=== PATIENT | female | born 1990 ===

== ENCOUNTER 2022-09-05 09:55 | Emergency (ER) | payer MEDICAID, SELFPAY ==
[2022-09-05 10:01] VITALS: BP 121/58; PULSE 80; RESP 16; TEMP 36.9; O2SAT 96; BMI 23.6
[2022-09-05 10:32] LABS: COVID-19 Test Negative (Negative); IDNOW Serial# BCCEAD1C
[2022-09-05 10:40] LABS: IDNOW Serial# 9DB6401D; Influenza A Negative (Negative); Influenza B2 Negative (Negative)
--- NOTE | 2022-09-05 11:01 | ED.URI ---
HPI - URI/Sore Throat General Chief Complaint: Upper Respiratory Symptoms Stated Complaint: fever, headache, congestion Time Seen by Provider: 09/05/22 10:00 Source: patient Mode of arrival: ambulatory Limitations: no limitations History of Present Illness HPI Narrative: Chaparro is a 32 yo female with no PMHx who presents today in the emergency room for a CC of sore throat, fever, chills, congestion, fatigue , and a productive cough for the last 4 days. She says her symptoms started Thursday where she measured a fever of 101 and noticed a sore throat and headache. She says she also had a productive cough with some green phlegm and says that she came into the ER today because she noticed small specks of blood in her cough this morning. She does not like taking medication and so has not tried anything to help with her symptoms. She denies chest pain, shortness of breath, nausea, vomiting, diarrhea, or constipation. She denies receiving any COVID or flu vaccines. She does admit to being in close contact with 3 family members who have tested positive for RSV within the last couple of weeks. MD elicited complaint: fever, cough, sore throat and nasal congestion Onset (ago): day(s) (4) Consistency: constant Severity: moderate Description of mucous: green Exacerbating factors: nothing Relieving factors: nothing Context: sick contacts (3 people with RSV) Associated symptoms: fever, chills, nasal congestion and sore throat Treatments prior to arrival: none Related Data Previous Rx's Medication Instructions Recorded gyzpsasmqemos-OW-ncediqayxqg 2.5 15 ml PO Q4H PRN cough #118 mL 09/05/22 mg-5 mg-50 mg/5 mL oral liquid (Robitussin Cough and Cold CF) Allergies Allergy/AdvReac Type Severity Reaction Status Date / Time No Known Allergies Allergy Verified 09/05/22 10:01 [No Known Allergies*] Review of Systems Review of Systems: Yes all other systems are reviewed and are negative Constitutional: Constitutional: Reports chills, Reports fatigue, Reports fever(s) and Reports headache(s) Eyes: Eyes: Reports no additional eye complaints and Denies change in vision ENT: Reports headache(s), Reports nasal congestion and Denies neck pain Cardiovascular: Cardiovascular: Reports no additional cardiovascular complaints, Denies chest pain, Denies leg edema and Denies dyspnea Respiratory: Respiratory: Reports no additional respiratory complaints, Reports cough and Denies dyspnea Gastrointestinal: Gastrointestinal: Reports no additional gastrointestinal complaints, Denies abdominal pain, Denies diarrhea, Denies nausea and Denies vomiting Genitourinary: Genitourinary: Reports no additional female genitourinary complaints and Denies urinary incontinence Musculoskeletal: Musculoskeletal: Reports no additional musculoskeletal complaints, Denies back pain, Denies arthralgias, Denies joint swelling, Denies neck pain, Denies numbness and Denies tingling Integumentary/Breasts: Skin/Breast: Reports system reviewed and no additional complaints, except as docu and Denies rash Neurologic: Denies Abnormal speech present, Reports headache(s), Denies numbness and Denies tingling Endocrine: Endocrine: Reports fatigue [facility] Past Medical History Attestation statement: The following information was validated with the patient. [facility] Narrative: PMHx: none SHx: none Source: old records reviewed and nursing notes reviewed Social History Social History Advance Directives: No Advance Directives Information Provided: No Physical Exam Vital Signs: Vital Signs: Last Vital Signs Temp 98.5 F 09/05/22 10:01 Pulse 80 09/05/22 10:01 Resp 16 09/05/22 10:01 BP 121/58 L 09/05/22 10:01 Pulse Ox 96 09/05/22 10:01 O2 Del Method 09/05/22 10:01 BMI result Body Mass Index 23.6 Const: General: cooperative, healthy appearing, comfortable and no acute distress Orientation/consciousness: patient oriented x3 Limitations: no limitations HEENT: Head: Yes normal to inspection Ears: hearing grossly normal bilaterally General nose exam: Normal external nose present Face and sinus: Yes normal facial exam Mouth: Normal oral and palatal mucosa present Throat: Yes posterior oropharynx normal Eyes: General: appearance normal, both eyes and all related structures Pupils: Equal, round and reactive pupils present Neck: Neck: Yes normal visual inspection Chest: Chest palpation & inspection: normal inspection of the chest Resp: Effort & Inspection: normal respiratory effort Auscultation: clear to auscultation bilaterally Cardio: Rate: regular rate Rhythm: regular rhythm Peripheral pulses: Peripheral pulses 2+ throughout GI: Inspection: Yes normal to inspection Palpation (GI): Soft to palpation and nontender Auscultation: normal bowel sounds Back/Spine/Pelvis: Thoracic/Lumbar Spine: thoracic and lumbar spine normal to inspection Skin: General skin exam: no rashes or lesions noted Neuro: General: patient oriented x3, no focal motor deficits and normal sensation to monofilament Cranial nerves: Yes Equal, round and reactive pupils present Cognition (Neuro): normal cognition Speech: No Abnormal speech present Gait exam (Neuro): Normal gait present Motor exam (neuro): 5/5 motor strength present throughout Extrem: General: Yes normal to inspection, Yes no pedal edema and Yes no calf tenderness Course Course Course Narrative: Patient seen in conjunction with Dee MOREIRA PA-student [place] MDM - URI/Sore Throat MDM Narrative Medical decision making narrative: Chaparro is a 32 yo female with no PMHx who presents today to the emergency department with a CC of 4 days of sore throat, congestion, cough, and fever. She is here today because she is concerned about specks of blood in her sputum. PE was unremarkable. Given her symptoms and PE, and that she has been in close contact with 3 individuals who have tested positive for RSV, its is highly probable that she has a URI. Most likely, she has RSV given that she has had recent sick contacts, and her COVID and flu swabs were negative. I recomended that she rest, stay hydrated with plenty of fluids, and have prescribed her Robitusson 5ml liquid form for her cough. I explained that RSV is like many URI and that supportive care as previously described is the best way to treat her symptoms. She should start to notice some improvement in a few days. She should f/u with her PCP. PERC 0. No hypoxia/tachypnea/tachycardia to suggest PNA (also normal lung exam). Medical Records Attestation: I reviewed the patient's medical records. Lab Data Attestation: I reviewed the patient's lab results. Labs: Lab Results 09/05/22 09/05/22 Range/Units 10:10 10:10 COVID-19 ([facility]) Negative (Negative) COVID-19 Clin Com See Note Influenza Type A ([facility]) Negative (Negative) Influenza Type B ([facility]LEY) Negative (Negative) Influenza A & B Note See Note Discharge Plan Discharge Clinical Impression: Upper respiratory infection Patient Disposition: Home, Self-Care Instructions: Upper Respiratory Infection (ED) Additional Instructions: Testing for flu and covid are negative Increase fluids, rest Return for worsening symptoms Prescriptions: New Robitussin Cough and Cold CF 2.5-5-50 mg/5 mL liquid 15 ml PO Q4H PRN (Reason: cough) Qty: 118 0RF Referrals: Physician,Unknown J [Primary Care Provider] - 5 days Stand Alone Forms: Work/School Release Interventions: ED Discharge Assessment Last Done: 09/05/22 11:10 Discharge Date/Time: 09/05/22 11:10
== END 2022-09-05 11:10 | disposition home or self-care (01) ==
PROVIDERS: Nurse Practitioner Family; Emergency Provider Emergency Medicine Emergency Medical Services
DX: J06.9 Acute upper respiratory infection, unspecified (principal); Z20.822 Contact with and (suspected) exposure to COVID-19
CPT/HCPCS: 87502; 87635; 99282; 99283

== ENCOUNTER 2022-10-01 21:52 | Emergency (ER) | payer OTHER, MEDICAID, SELFPAY ==
[2022-10-01 22:13] VITALS: BP 126/72; PULSE 85; RESP 20; TEMP 36.6; O2SAT 98; BMI 22.3
[2022-10-01 23:11] LABS: COVID-19 Test Positive (Negative); IDNOW Serial# 08D9AD1C; Influenza A Negative (Negative); Influenza B2 Negative (Negative)
--- NOTE | 2022-10-01 23:15 | ED_ITS ---
HPI - URI/Sore Throat General Chief Complaint: Upper Respiratory Symptoms Stated Complaint: covid symptoms Time Seen by Provider: 10/01/22 23:13 Source: patient Mode of arrival: ambulatory Limitations: no limitations History of Present Illness HPI Narrative: Patient is a 32-year-old female who presents emergency department for evaluation of upper respiratory symptoms. She is complaining of cough, upper back pain, rhinorrhea. Reports symptom onset 1 month ago when she developed a cough. Denies fevers, chills, chest pain, shortness of breath, nausea, vomit abdominal pain, generalized weakness, myalgias, headache. Related Data Previous Rx's Medication Instructions Recorded douekmcyiqhmi-EY-ouvbrqmoupn 2.5 15 ml PO Q4H PRN cough #118 mL 09/05/22 mg-5 mg-50 mg/5 mL oral liquid (Robitussin Cough and Cold CF) Allergies Allergy/AdvReac Type Severity Reaction Status Date / Time No Known Allergies Allergy Verified 10/01/22 22:19 [No Known Allergies*] Review of Systems Review of Systems: Constitutional: No fever. No chills. No weakness. No fatigue. ENT/ Mouth: No Ear Pain, no Nasal Congestion, no sore throat, No Rhinorrhea, No Swallowing Difficulty Skin: No rash or itching. Cardiovascular: No chest pain. No palpitations. Respiratory: No shortness of breath. Positive cough. No sputum production. Gastrointestinal: No nausea. No vomiting. No diarrhea. No abdominal pain. Genitourinary: No burning micturition. No urinary frequency. Neurologic: No headache. No dizziness. No syncope. No numbness or tingling in the extremities. Musculoskeletal: No muscle pain. No back pain. No joint pain or stiffness. Yes all other systems are reviewed and are negative [facility] Past Medical History Attestation statement: The following information was validated with the patient. Source: old records reviewed Social History Social History Advance Directives: No Physical Exam Vital Signs: Vital Signs: Last Vital Signs Temp 98 F 10/01/22 22:13 Pulse 85 10/01/22 22:13 Resp 20 10/01/22 22:13 BP 126/72 10/01/22 22:13 Pulse Ox 98 10/01/22 22:13 O2 Del Method 12/21/22 22:13 BMI result Body Mass Index 22.3 Vital signs have been reviewed as normal and appeared to be correct. Blood pressure normal.? Heart rate normal.? Respiration rate normal. Temperature normal.? Oxygen saturation normal. Appearance: Alert.?Oriented to person, place and time. No acute distress.?Normal affect. Eyes: Pupils equal, round and reactive to light.? ENT: TM normal bilaterally. Pharynx normal.?? Neck: Normal inspection.? Neck supple.??No cervical adenopathy CVS: Heart sounds normal. Normal heart rate and rhythm.? Pulses normal.?? Respiratory: No respiratory distress.? Lung sounds clear to auscultation bilaterally?? Abdomen: Soft and non-tender. Normoactive bowel sounds. Skin: Skin warm and dry.? Normal skin color.? ? Extremities: No lower extremity edema.? Neuro: Moves all extremities spontaneously. Sensation intact bilaterally. No motor deficits. Ambulates with normal steady gait. Course Course Course Narrative: Patient is a 32-year-old female with no reported past medical history, presenting for evaluation of upper respiratory symptoms. COVID-19 testing positive, given duration of symptoms would not be candidate for Paxlovid. Influenza testing negative. At this time history and physical exam not consistent with ACS/PE/pneumonia. Well-appearing, nontoxic, afebrile, no tachycardia or tachypnea/hypoxia. Speaking clear full sentences, ambulatory with steady gait. Discussed conservative treatment including rest, hydration, Tylenol/ibuprofen as needed for fever and body aches, saline nasal spray, humidifier, eexz-iez-hcwoqmz cold medication. Advised to follow-up with primary care provider as needed, discussed reasons to return back to the emergency department. All questions were answered. Patient discharged home in stable condition. Provided with a return to work note. Medical Decision Making Lab Data MDM Lab Attestation statement: I reviewed the patient's lab results. Labs: Lab Results 10/01/22 10/01/22 Range/Units 22:51 22:51 COVID-19 ([facility]AYLA) Positive A (Negative) COVID-19 Clin Com See Note Influenza Type A ([facility]) Negative (Negative) Influenza Type B ([facility]) Negative (Negative) Influenza A & B Note See Note Discharge Plan Discharge Clinical Impression: COVID-19 Patient Disposition: Home, Self-Care Instructions: COVID-19 (Coronavirus Disease 2019) (ED) Additional Instructions: Be sure to rest, stay well hydrated drinking plenty of fluids, eat small frequent meals. Tylenol/ibuprofen can be used as needed for fever/pain. Wjkq-adp-gorjkwj cold medications may be helpful as well for symptoms. Saline nasal spray, humidifier may be helpful for nasal congestion, cough. You may return to the emergency department with any new or worsening symptoms or concerns. Follow-up with your primary care provider as needed. Prescriptions: No Action Robitussin Cough and Cold CF 2.5-5-50 mg/5 mL liquid 15 ml PO Q4H PRN (Reason: cough) Qty: 118 0RF Referrals: Physician,Unknown J [Primary Care Provider] - Stand Alone Forms: Work/School Release
== END 2022-10-02 00:10 | disposition home or self-care (01) ==
PROVIDERS: Emergency Provider Emergency Medicine
DX: U07.1 COVID-19 (principal)
CPT/HCPCS: 87502; 87635; 99282; 99283

== ENCOUNTER 2023-04-16 22:10 | Emergency (ER) | payer OTHER, SELFPAY ==
[2023-04-16 22:37] VITALS: BP 111/66; PULSE 80; RESP 18; TEMP 36.6; O2SAT 98; BMI 23.7
[2023-04-17 00:02] VITALS: BP 119/59; PULSE 72; RESP 16; TEMP 36.6; O2SAT 98
--- NOTE | 2023-04-17 01:05 | ED.URI ---
HPI - URI/Sore Throat General Chief Complaint: Upper Respiratory Symptoms Stated Complaint: Left ear pain/throat pain Time Seen by Provider: 04/16/23 23:51 Source: patient Mode of arrival: ambulatory Limitations: no limitations History of Present Illness HPI Narrative: Patient is a 32-year-old female who presents emergency department for evaluation of sore throat, fatigue, and left ear pain. Symptom onset was 5 days ago, progressively worsening. Has had a mild intermittent headache associated with this as well. She reports a history of recurrent strep throat infections that cause her to have ear infections. She is being followed by her primary care provider for potential consideration of tonsillectomy. Denies known sick exposures. Denies neck pain, neck stiffness, dizziness, lightheadedness, chest pain, shortness breath, difficulty breathing, productive cough. Related Data Previous Rx's Medication Instructions Recorded nlcyokpfkmdev-SM-oxfbryxrtpx 2.5 15 ml PO Q4H PRN cough #118 mL 09/05/22 mg-5 mg-50 mg/5 mL oral liquid (Robitussin Cough and Cold CF) amoxicillin 875 mg-potassium 1 tab PO BID #19 tabs 04/17/23 clavulanate 125 mg tablet Allergies Allergy/AdvReac Type Severity Reaction Status Date / Time No Known Allergies Allergy Verified 10/01/22 22:19 [No Known Allergies*] Review of Systems Review of Systems: Constitutional: No weight loss, fever, chills, weakness or fatigue. ENT: As per HPI Skin: No rash or itching. Cardiovascular: No chest pain, chest pressure or chest discomfort. No palpitations Respiratory: No shortness of breath, cough or sputum production. Gastrointestinal: No nausea, vomiting or diarrhea. No abdominal pain Genitourinary: No burning micturition. No urinary frequency or incontinence. Musculoskeletal: No muscle pain, back pain, joint pain or stiffness. Psychiatric: No depression or anxiety. Yes all other systems are reviewed and are negative [facility] Past Medical History Attestation statement: The following information was validated with the patient. Source: old records reviewed Social History Social History Advance Directives: No Advance Directives Information Provided: Yes Physical Exam Vital Signs: Vital Signs: Last Vital Signs Temp 97.8 F 04/17/23 00:02 Pulse 72 04/17/23 00:02 Resp 16 04/17/23 00:02 BP 119/59 L 04/17/23 00:02 Pulse Ox 98 04/17/23 00:02 O2 Del Method Room Air 04/17/23 00:02 BMI result Body Mass Index 23.7 Appearance: Alert.?Oriented to person, place and time. No acute distress.?Normal affect. Head: Normocephalic, atraumatic. No head, sinus or TMJ tenderness.? Eyes: Sclera white, conjunctiva pink. PERRL, EOMi.?No Nystagmus. Ears: Right ear canals clear, TM visible with good cone of light.? Left ear canal clear, TM erythematous and bulging. Nose: Nasal mucosa pink and moist with midline septum, nares patent bilaterally.? Mouth/ Throat: Oral mucosa pink and moist without lesions. Pharynx erythematous without exudate, uvula midline, no trismus, no drooling, tonsils mildly enlarged, symmetric, no adenopathy.? Neck: Normal inspection.? Neck supple.? No cervical lymphadenopathy? CVS: Heart sounds normal. Normal heart rate and rhythm.? Pulses normal.?? Respiratory: No respiratory distress.? Lung sounds clear to auscultation bilaterally?? Abdomen: Soft and non-tender. Normoactive bowel sounds. .?? Skin: Skin warm and dry.? Normal skin color.? ?? Extremities: No lower extremity edema.? Neuro: Moves all extremities spontaneously. Sensation intact bilaterally. No focal neuro deficits. Ambulates with normal steady gait. Medications Administered Discontinued Medications Generic Name Dose Route Start Last Admin Trade Name Freq PRN Reason Stop Dose Admin Amoxicillin/Clavulanate Potassium 875 mg 04/17/23 01:05 04/17/23 01:13 Amoxicillin/Potassium Clav 875 Mg Tablet PO 04/17/23 01:06 875 mg ONCE ONE Administration Medical Decision Making Medical Decision Making MDM Narrative: Patient is a 32-year-old female presents emergency department for evaluation of sore throat and ear pain. Examination consistent with pharyngitis without significant tonsillar hypertrophy, exudates, no evidence of peritonsillar or retropharyngeal abscess, in addition to findings consistent with acute otitis media of the left ear. Examination not consistent with TM rupture or otitis externa. COVID-19/influenza/RSV and strep testing today were all negative. Advised rest, hydration, sent prescription for Augmentin to pharmacy for treatment of acute otitis media, received 1st dose while in the emergency department. Advised outpatient follow-up with her primary care provider. Reviewed worrisome signs and symptoms that would warrant re-evaluation in the emergency department. All questions answered. Stable for discharge at this time. Differential Diagnosis Differential Diagnoses: The differential diagnosis associated with the presentation includes (As noted above) Lab Data MDM Lab Attestation statement: I reviewed the patient's lab results. (As noted above in narrative) Labs: Lab Results 04/16/23 04/16/23 Range/Units 22:53 23:18 Influenza Type A (PCR) NEGATIVE (Negative) Influenza Type B (PCR) NEGATIVE (Negative) RSV RNA Qual (PCR) NEGATIVE (Negative) SARS-CoV-2 RNA (RT-PCR) NEGATIVE (Negative) S. pyogenes GrpA ASHLEY Negative (Negative) External Record Review External record reviewed: Outpatient record Prescription Management I considered prescription management with: Antibiotic Discharge Plan Discharge Clinical Impression: Otitis media Patient Disposition: Home, Self-Care Instructions: Ear Infection (ED) Additional Instructions: Please complete the entire course of antibiotics as prescribed. Do not insert anything into the ear canal as this may increase risk of rupturing the ear drum. You can take ibuprofen 200 mg, 3 tablets (600mg) every 6-8 hours as needed for pain, in addition to Tylenol 500 mg, 2 tablets (1,000mg) every 4-6 hours as needed for pain, but not to exceed 3 doses daily (3,000mg).? Please follow-up with your primary care provider. Prescriptions: New amoxicillin-pot clavulanate 875-125 mg tablet 1 tab PO BID Qty: 19 0RF No Action Robitussin Cough and Cold CF 2.5-5-50 mg/5 mL liquid 15 ml PO Q4H PRN (Reason: cough) Qty: 118 0RF Referrals: [facility] [Primary Care Provider] - Interventions: ED Discharge Assessment Last Done: 04/17/23 01:14 Discharge Date/Time: 04/17/23 01:14
== END 2023-04-17 01:14 | disposition home or self-care (01) ==
PROVIDERS: Emergency Provider Student in an Organized Health Care Education/Training Program
DX: H66.93 Otitis media, unspecified, bilateral (principal); R07.0 Pain in throat; Z20.822 Contact with and (suspected) exposure to COVID-19; Z20.828 Contact with and (suspected) exposure to other viral communicable diseases; Z79.899 Other long term (current) drug therapy
CPT/HCPCS: 0241U; 87651; 99283

== ENCOUNTER 2024-07-23 12:02 | Emergency (ER) | payer BC, SELFPAY ==
--- NOTE | ~2024-07-23 | XR_ITS ---
Examination: X-ray thoracic and lumbar spine INDICATION: Fall, midline tenderness. COMPARISON: None. TECHNIQUE: 3 views of the thoracic spine and 3 views of the lumbar spine. FINDINGS: The vertebral body heights and intervertebral disc spaces are preserved in the thoracic and lumbar spine. There is normal alignment. Posterior elements appear in tact. Soft tissues, visualized mediastinal structures and visualized lungs are unremarkable. XR/XR lumbar spine 2-3V IMPRESSION: Unremarkable thoracic and lumbar spine. Electronically signed by: Beto Akhtar MD 07/23/2024 03:02 PM EDT
--- NOTE | ~2024-07-23 | XR_ITS ---
Examination: X-ray thoracic and lumbar spine INDICATION: Fall, midline tenderness. COMPARISON: None. TECHNIQUE: 3 views of the thoracic spine and 3 views of the lumbar spine. FINDINGS: The vertebral body heights and intervertebral disc spaces are preserved in the thoracic and lumbar spine. There is normal alignment. Posterior elements appear in tact. Soft tissues, visualized mediastinal structures and visualized lungs are unremarkable. XR/XR thoracic spine 3V IMPRESSION: Unremarkable thoracic and lumbar spine. Electronically signed by: Beto Akhtar MD 07/23/2024 03:02 PM EDT
--- NOTE | ~2024-07-23 | CT_ITS ---
EXAMINATION: CT ABDOMEN AND PELVIS WITH CONTRAST CLINICAL INFORMATION: Diffuse tenderness. COMPARISON: None available. TECHNIQUE: Multidetector volumetric images were obtained from the superior aspect of the liver through the pubic symphysis following administration 85 mL of Omnipaque 350 intravenous contrast. Sagittal and coronal reformatted images were obtained on the technologist's workstation. Oral contrast: No This CT examination was performed using dose optimization techniques as appropriate, variously including the following: *Automated exposure control *Adjustment of mA and/or kV according to patient size (this includes techniques or standardized protocols for targeted exams where dose is matched to indication/reason for exam; i.e. extremities or head) *Use of iterative reconstruction technique DLP: 352 mGy-cm FINDINGS: LUNG BASES: The lung bases appear clear, with no evidence of inflammation or nodules. LIVER, GALLBLADDER, AND BILIARY TREE: The liver appears unremarkable in size, shape, and attenuation. No focal hepatic lesion or biliary ductal dilatation is appreciated. Unremarkable appearance of the gallbladder. PANCREAS: Unremarkable SPLEEN: Unremarkable ADRENAL GLANDS: Unremarkable KIDNEYS AND URETERS: The kidneys appear unremarkable in size, shape, and attenuation. No hydronephrosis, hydroureter, or calculi seen. BLADDER: Unremarkable GASTROINTESTINAL TRACT: The small and large bowel appear unremarkable. No diverticulosis. Normal-appearing distal ileum and vermiform appendix. ABDOMINAL WALL: No significant hernia is appreciated. LYMPH NODES: No evidence of adenopathy by size criteria. VASCULAR: Unremarkable PELVIC VISCERA: Unremarkable OSSEOUS STRUCTURES: Unremarkable CT/CT abdomen pelvis w IV con IMPRESSION: No significant abnormal finding Electronically signed by: Christiano Arroyo MD 07/23/2024 04:25 PM EDT
--- NOTE | 2024-07-23 12:18 | ED_ITS ---
HPI - General Adult General Chief complaint: Fall Stated complaint: fall Time Seen by Provider: 07/23/24 13:53 Source: patient Mode of arrival: ambulatory Limitations: no limitations History of Present Illness ED Provider: Shimon PULLIAM narrative: Patient is a 33-year-old female with no past medical history presenting to the emergency department with complaint of generalized back pain after falling when her chair broke 6 days ago. States this occurred at home, and she fell to the floor approximately 1 foot. During the fall she scraped her back/left flank on a metal piece of the chair. Denies head strike or loss of consciousness. She is not anticoagulated. Has also had generalized abdominal pain since the fall, states this worsened yesterday. Has taken Tylenol and ibuprofen with little relief. Denies hematuria, hematochezia, melena. complaint: back and abdominal pain Onset (ago): day(s) Related Data Previous Rx's ?Medication ?Instructions ?Recorded [id number]-[id number] 2.5 15 ml PO Q4H PRN cough #118 mL 09/05/22 mg-5 mg-50 mg/5 mL oral liquid (Robitussin Cough and Cold CF) amoxicillin 875 mg-potassium 1 tab PO BID #19 tabs 04/17/23 clavulanate 125 mg tablet cyclobenzaprine 5 mg tablet 5 mg PO TID PRN muscle spasm #10 07/23/24 tabs lidocaine 5 % topical patch 1 patch topical DAILY #15 ea 07/23/24 Allergies Allergy/AdvReac Type Severity Reaction Status Date / Time No Known Allergies Allergy Verified 07/23/24 12:23 [No Known Allergies*] Review of Systems 2 Review of Systems: As per HPI. Yes all other systems are reviewed and are negative Constitutional: Constitutional: Reports as per HPI [facility] Social History Social History Advance Directives: No Advance Directives Information Provided: Yes Physical Exam ED Vital Signs: Vital Signs - 24 hr 07/23/24 12:19 Temperature 98 F Pulse Rate 84 Respiratory Rate 16 Blood Pressure 109/68 Pulse Oximetry 99 Oxygen Delivery Method Room Air BMI result Body Mass Index 23.0 Vital signs have been reviewed and appear to be correct. Blood pressure normal. Heart rate normal. Respiratory rate normal. Temperature normal. Oxygen saturation normal. Const General: cooperative, healthy appearing and no acute distress Orientation/consciousness: oriented to person, oriented to place, oriented to time and patient oriented x3 Limitations: no limitations HENMT Head: Yes normocephalic and Yes atraumatic Ears: external ears normal General nose exam: Normal external nose present Face and sinus: Yes face symmetric Mouth: oropharynx normal and moist mucous membranes Throat: Yes uvula midline Eyes Pupils: Equal, round and reactive pupils present Neck Neck: Yes normal visual inspection and Yes supple Resp Effort & Inspection: normal respiratory effort and able to speak in complete sentences Auscultation: clear to auscultation bilaterally Cardio Rate: regular rate Rhythm: regular rhythm Heart sounds: S1 normal heart sound present and S2 normal heart sound present GI Inspection: Yes normal to inspection Palpation (GI): Soft to palpation, Tenderness to palpation present (GI) (diffuse), no guarding and No Rebound tenderness present Auscultation: normoactive bowel sounds General: Yes no CVA tenderness Back/Spine/Pelvis Back: no CVA tenderness Cervical Spine: normal cervical lordosis, cervical ROM normal, No pain with cervical ROM, No Cervical spine tenderness and No step off deformity Thoracic/Lumbar Spine: thoracic and lumbar spine normal to inspection, thoraco- lumbar ROM normal, straight leg raise negative bilaterally, pain with thoraco- lumbar ROM, thoracic spinal tenderness and lumbar spinal tenderness Pelvis: no pain with anterior-posterior compression and no pain with lateral compression Back/spine/pelvis image: 2 1. 3cm superficial abrasion, no puncture wound noted Skin General skin exam: elasticity normal and turgor normal Neuro General: oriented to person, oriented to place, oriented to time, patient oriented x3, moves all extremities, no focal motor deficits and CN's II-XI intact bilaterally Cranial nerves: Yes Equal, round and reactive pupils present Cognition (Neuro): normal cognition Extrem General: Yes full ROM, Yes no pedal edema and Yes no calf tenderness Psych Mental Status: mental status grossly normal Affect: normal affect Thought process: Normal thought process present Course Course Course Narrative: This is a Rapid Medical Examination (RME) performed by Jessica Andrade PA-C in triage. Full HPI, ROS, assessment and treatment plan per primary provider in the Main ED. 33 yo female here for eval s/p fall on Thursday (6 days ago). pt was sitting on a chair, chair back came off, fell back onto a metal plate which impailed the skin along her left flank. then fell to the ground. denies head strike or loc. no thinners. reports all over body pain, states my insides are hurting - referring to her abdomen (left side with radiation to lower right). normal PO intake however endorses pain w/ BM movements. initially taking motrin, no longer providing relief. tetanus UTD 2-3 yrs ago. denies saddle anesthesia, bowel/bladder incontinence or retention. + healing laceration to left flank. ttp of left flank and left abd. no overlying ecchymosis. no midline spinous tenderness. Plan: labs, will defer imaging to primary provider Medications Administered Discontinued Medications Generic Name Dose Route Start Last Admin Trade Name Fausto PRN Reason Stop Dose Admin Iohexol 100 ml 07/23/24 16:01 07/23/24 16:01 Iohexol 350 Mg/Ml 100 Ml Infus..Btl IV 07/23/24 16:02 85 ml ONCE ONE Administration Medical Decision Making Medical Decision Making [facility] Narrative: Patient is a 33-year-old female with no past medical history presenting to the emergency department with complaint of generalized back pain after falling when her chair broke 6 days ago. On exam patient is awake, A+Ox3, VS WNL, afebrile, normal neurological exam without focal deficits, physical exam findings as above. Given reported symptoms and physical exam findings, initial differential includes musculoskeletal strain, vertebral fracture/subluxation. Less likely kidney or intraabdominal injury. Labs unremarkable. X-ray lumbar and thorax notable for no fracture or dislocation. CT abdomen/pelvis unremarkable. My interpretation is in agreement with the radiologist's interpretation. Results discussed with patient, pain most likely musculoskeletal. Will send prescriptions for muscle relaxer as well as lidocaine patches. Follow up with PCP. Return precautions discussed. Patient verbalized understanding of and agreement with plan. Differential Diagnosis Differential Diagnoses: The differential diagnosis associated with the presentation includes As per [facility] Admission/Observation Consideration of admission/observation: Escalation of care including admission/observation considered Patient would have been admitted to the hospital had their work up had any findings where hospital admission was appropriate and their clinical presentation warranted hospital admission. Lab Data [facility] Lab Attestation statement: I reviewed the patient's lab results. As per [facility] 07/23/24 12:56 07/23/24 12:56 Labs: Lab Results 07/23/24 Range/Units 12:56 WBC 7.5 (4.8-10.8) X10*3/uL RBC 4.82 (4.20-5.50) X10*6/uL Hgb 13.2 (12.0-16.0) g/dl Hct 39.7 (37.0-47.0) % MCV 82.4 (80.0-98.0) fL MCH 27.4 (27.0-33.0) pg MCHC 33.2 (31.0-35.0) g/dl RDW 13.2 (11.0-16.0) % Plt Count 276 (160-400) X10*3/uL MPV 9.9 (9.4-12.3) fL Immature Gran % (Auto) 0.1 (0.0-0.4) % Neut % (Auto) 63.3 (45-73) % Lymph % (Auto) 26.0 (20-40) % [place] % (Auto) 8.0 (2-11) % Eos % (Auto) 1.7 (0-4) % Baso % (Auto) 0.9 (0-2) % Lymph # (Auto) 2.0 (1.2-4.9) X10*3/uL [place] # (Auto) 0.6 (0.1-1.2) X10*3/uL Eos # (Auto) 0.1 (0.0-0.4) X10*3/uL Baso # (Auto) 0.1 (0.0-0.2) X10*3/uL Abs Immat Gran (auto) 0.01 (0.00-0.03) X10*3/uL Absolute Neuts (auto) 4.8 (2.0-8.3) x10*3/uL Absolute Nucleated RBC 0.000 (0.0-0.012) X10*3/uL Nucleated RBC % (auto) 0.0 (0.0-0.2) /100WBC PT 11.8 (10.9-12.4) SEC INR 1.0 (0.9-1.1) Sodium 139 (135-145) mmol/L Potassium 4.5 (3.3-5.1) mmol/L Chloride 107 (96-108) mmol/L Carbon Dioxide 27 (22-29) mmol/L Anion Gap 10 L (12-20) BUN 16 (9-16) mg/dL Creatinine 1.04 (0.5-1.4) mg/dL Estim Creat Clear Calc 67.0 Estimated GFR > 60 Random Glucose 99 (60-115) mg/dL Calcium 9.3 (8.4-10.2) mg/dL Magnesium 1.7 (1.6-2.6) mg/dL Total Bilirubin 0.4 (0.0-1.0) mg/dL AST 18 (5-31) U/L ALT 10 (0-31) U/L Alkaline Phosphatase 38 L (39-117) U/L Total Protein 7.0 (6.5-8.0) g/dL Albumin 4.3 (3.5-5.0) g/dL Lipase 33 (8-78) U/L Beta HCG, Quant < 2 mIU/mL Independent Interpretation I performed an independent interpretation of an: Plain X-Ray and CT Scan Interpretation: X-ray lumbar and thorax notable for no fracture or dislocation. CT abdomen/pelvis unremarkable. Radiology Impression Discussion of test interpretation with radiology: I have reviewed the radiologist's reading. Radiologist Impression: XR/XR lumbar spine 2-3V IMPRESSION: Unremarkable thoracic and lumbar spine. CT/CT abdomen pelvis w IV con IMPRESSION: No significant abnormal finding External Record Review External record reviewed: Inpatient record, Office record and Outpatient record Prescription Management I considered prescription management with: Pain Medication and Other Discharge Plan Discharge Clinical Impression: Strain of mid-back Patient Disposition: Home, Self-Care Instructions: Muscle Strain (DC), R.I.C.E. Treatment (ED) Additional Instructions: You were evaluated in the emergency department today for injuries after a fall. Your x-rays did not show evidence of any spinal fractures. Your CT scan did not show any abdominal abnormalities, your labs were reassuring. You are being prescribed a muscle relaxer which you can take every 8 hours as needed. Do not drink alcohol while taking this medication as it can cause excessive drowsiness. You are also being prescribed topical lidocaine patches which you can wear for up to 12 hours in a 24 hour period. We recommend that you follow-up with your primary care provider this week. Return to the emergency department with new or concerning symptoms. Prescriptions: New cyclobenzaprine 5 mg tablet 5 mg PO TID PRN (Reason: muscle spasm) Qty: 10 0RF lidocaine 5 % adhesive patch,medicated 1 patch topical DAILY Qty: 15 0RF Rx Instructions: leave on most painful area for up to 12 hrs No Action Robitussin Cough and Cold CF 2.5-5-50 mg/5 mL liquid 15 ml PO Q4H PRN (Reason: cough) Qty: 118 0RF amoxicillin-pot clavulanate 875-125 mg tablet 1 tab PO BID Qty: 19 0RF Print Language: Canadian
[2024-07-23 12:19] VITALS: BP 109/68; PULSE 84; RESP 16; TEMP 36.6; O2SAT 99; BMI 23.0
[2024-07-23 12:59] LABS: MANUAL DIFF FLAG NO
[2024-07-23 13:01] LABS: Basophils Absolute Auto 0.1 X10*3/uL (0.0-0.2); Basophils Percent Auto 0.9 % (0-2); Eosinophils Absolute Auto 0.1 X10*3/uL (0.0-0.4); Eosinophils Percent Auto 1.7 % (0-4); Hematocrit 39.7 % (37.0-47.0); Hemoglobin 13.2 g/dl (12.0-16.0); Imm Gran Abs Auto 0.01 X10*3/uL (0.00-0.03); Imm Gran Pct Auto 0.1 % (0.0-0.4); Mean Corpuscular HGB Conc 33.2 g/dl (31.0-35.0); Mean Corpuscular Hemoglobin 27.4 pg (27.0-33.0); Mean Corpuscular Volume 82.4 fL (80.0-98.0); Mean Platelet Volume 9.9 fL (9.4-12.3); Monocytes Absolute Auto 0.6 X10*3/uL (0.1-1.2); Neutrophils Absolute Auto 4.8 x10*3/uL (2.0-8.3); Neutrophils Percent Auto 63.3 % (45-73); Platelet Count 276 X10*3/uL (160-400); Red Blood Count 4.82 X10*6/uL (4.20-5.50); Red Cell Distribution Width 13.2 % (11.0-16.0); White Blood Count 7.5 X10*3/uL (4.8-10.8)
[2024-07-23 13:08] LABS: Prothrombin Time 11.8 SEC (10.9-12.4)
[2024-07-23 13:26] LABS: Alanine Aminotransferase 10 U/L (0-31); Albumin Level 4.3 g/dL (3.5-5.0); Alkaline Phosphatase 38 U/L (39-117); Anion Gap 10 (12-20); Aspartate Amino Transferase 18 U/L (5-31); Bilirubin Total 0.4 mg/dL (0.0-1.0); Blood Urea Nitrogen 16 mg/dL (9-16); Calcium 9.3 mg/dL (8.4-10.2); Carbon Dioxide 27 mmol/L (22-29); Chloride 107 mmol/L (96-108); Estimated Glomerular Filt Rate > 60; Glucose Random 99 mg/dL (60-115); Lipase 33 U/L (8-78); Magnesium 1.7 mg/dL (1.6-2.6); Potassium 4.5 mmol/L (3.3-5.1); Sodium 139 mmol/L (135-145)
[2024-07-23 13:29] LABS: HCG Quantitative < 2 mIU/mL
--- NOTE | 2024-07-23 15:27 | PC.NURSE ---
20G inserted to R upper AC. Tolerated well. Good blood return.
[2024-07-23] MEDS: iohexoL 350 MG/ML 100 ML INFUS..BTL IV (16:01)
[2024-07-23 18:02] VITALS: BP 109/68; PULSE 84; RESP 16; TEMP 36.6; O2SAT 99
[2024-07-23 18:14] VITALS: BP 144/82; PULSE 77; RESP 18; TEMP 36.9; O2SAT 100
== END 2024-07-23 18:43 | disposition home or self-care (01) ==
PROVIDERS: Physician Assistant Medical; Emergency Provider Emergency Medicine
DX: S39.012A Strain of muscle, fascia and tendon of lower back, initial encounter (principal); W07.XXXA Fall from chair, initial encounter; R10.84 Generalized abdominal pain; Y93.89 Activity, other specified; Y92.019 Unspecified place in single-family (private) house as the place of occurrence of the external cause; Y99.9 Unspecified external cause status; Z79.899 Other long term (current) drug therapy
CPT/HCPCS: 36415; 72072; 72100; 74177; 80053; 83690; 83735; 84702; 85025; 85610; 99283; 99284; Q9967